=== PATIENT | male | born 1985 | race African-American/Black ===

== ENCOUNTER 2018-07-28 07:53 | Emergency (ER) | payer MEDICAID ==
[2018-07-28] MEDS ORDERED: AZITHROMYCIN 250 MG TAB PO ONE (09:03)
--- NOTE | 2018-07-28 09:05 | EDPHY ---
H & P Stated Complaint: dysuria Time Seen by Provider: 07/28/18 08:56 HPI/ROS: CHIEF COMPLAINT: Dysuria post unprotected sexual activity HISTORY OF PRESENT ILLNESS: 32-year-old male via private vehicle complaining of dysuria for the past 3 days post unprotected sexual activity 7-10 days ago. No back or flank pain. No fever or chills. No hematuria. PHYSICAL EXAM (Prior to examination, patient consented to physical exam, hands were washed and my usual and customary physical exam procedures followed) 1) GENERAL: Well-developed, well-nourished, alert and oriented. Appears to be in no acute distress. 2) HEAD: Normocephalic 3) HEENT: sclera anicteric 4) LUNGS: Breathing comfortably. [5) : Circumcised, no urethral discharge, no lesions. - Personal History Current Tetanus/Diphtheria Vaccine: Unsure Current Tetanus Diphtheria and Acellular Pertussis (TDAP): Unsure - Medical/Surgical History Hx Asthma: No Hx Chronic Respiratory Disease: No Hx Diabetes: No Hx Cardiac Disease: No Hx Renal Disease: No Hx Cirrhosis: No Hx Alcoholism: No Hx HIV/AIDS: No Hx Splenectomy or Spleen Trauma: No Other PMH: denies - Social History Smoking Status: Current every day smoker Constitutional: Initial Vital Signs Temperature (C) 36.6 C 07/28/18 08:01 Heart Rate 96 07/28/18 08:01 Respiratory Rate 16 07/28/18 08:01 Blood Pressure 106/76 07/28/18 08:01 O2 Sat (%) 98 07/28/18 08:01 O2 Delivery Mode Room Air Allergies/Adverse Reactions: No Known Allergies Allergy (Unverified 07/28/18 08:01) Home Medications: Medication Instructions Recorded NK [No Known Home Meds] 07/28/18 Medical Decision Making ED Course/Re-evaluation: Recommended empiric treatment for chlamydia and gonorrhea. Given azithromycin Rocephin in the ER. Laboratory results pending. We discussed safer sexual activity. Recommended discussing the laboratory results with his sexual partner. Care of patient under supervision of secondary supervising physician Dr Lazaro Cordova with whom I discussed case. - Data Points Laboratory Results: 07/28/18 08:05 Urine Color YELLOW Urine Appearance HAZY Urine pH 5.0 (5.0-7.5) Ur Specific [place] 1.017 (1.002-1.030) Urine Protein NEGATIVE (NEGATIVE) Urine Ketones NEGATIVE (NEGATIVE) Urine Blood 1+ H (NEGATIVE) Urine Nitrate NEGATIVE (NEGATIVE) Urine Bilirubin NEGATIVE (NEGATIVE) Urine Urobilinogen NEGATIVE EU EU (0.2-1.0) Ur Leukocyte Esterase NEGATIVE (NEGATIVE) Urine RBC NONE SEEN /hpf /hpf (0-3) Urine WBC 1-3 /hpf /hpf (0-3) Ur Epithelial Cells NONE SEEN /lpf /lpf (NONE-1+) Urine Glucose 1+ H (NEGATIVE) Departure - Departure Disposition: Home, Routine, Self-Care Clinical Impression: Possible exposure to STD Condition: Good Instructions: Sexually Transmitted Diseases (ED) Additional Instructions: Please practice safer sexual activity Referrals: [facility],. [Clinic] - 2-3 days, call for appt.
[2018-07-28 09:20] VITALS: BP 105/70
[2018-07-29 12:06] LABS: GC AMPLIFICATION GENPROBE NEGATIVE (NEGATIVE)
== END 2018-07-28 09:42 | disposition home or self-care (01) ==
DX: R30.0 Dysuria (principal); Z20.2 Contact with and (suspected) exposure to infections with a predominantly sexual mode of transmission
CPT/HCPCS: J0696